=== PATIENT | female | born 1980 | race Caucasian/White ===

== ENCOUNTER 2018-02-13 12:56 | Emergency (ER) | payer SELFPAY ==
--- NOTE | 2018-02-13 13:03 | ED Physician Documentation ---
General Adult - HISTORIAN Historian: patient - HPI Stated Complaint: left sided chest/rib pain x 1 day Chief Complaint: Chest Pain Onset: minutes (6) Timing: still present Severity: mild Further Comments: yes (She reports feeling as though she had a fever this am and she was feeling like she had a collapsed lung as she did before. She states she is sure she feels exactly the same as she did with the collpased lung and she is worried. She denies a cough. Sickness started early this am although she is not sure of exact time. She did not measure her fever) Last known Well Code/Unknown Code: Unknown - ROS CONST: fever CVS/RESP: chest pain (left lower ). denies: shortness of breath, cough GI/: none MS/SKIN/LYMPH: none NEURO/PSYCH: denies: headache, fainting, dizziness - PAST HX Past History: none Other History: none Surgeries/Procedures: none Immunizations: UTD Allergies/Adverse Reactions: Allergies Allergy/AdvReac Type Severity Reaction Status Date / Time No Known Allergies Allergy Unverified 02/13/18 13:09 Home Medications: Ambulatory Orders Medication Instructions Recorded NK [NK] 02/13/18 - SOCIAL HX Smoking History: cigarettes Alcohol Use: none Drug Use: none - FAMILY HX Family History: No - REVIEWED ASSESSMENTS Nursing Assessment Reviewed: Yes Vitals Reviewed: Yes Progress - Progress Progress: 1420: Pt came to the ER desk and asked for results and we did inform her we were awaiting the radiologist read on the xray. She states she needs to go due to her boyfriend needing to return to work. She asked if she could just leave and we would call her in meds or call her if we get results. Again we informed her of the process and she went back into the exam room. She denied increased pain or complaints. DG 1440: Pt and boyfriend left room. when questioned by the nurse she said she was leaving. The nurse asked her to sign an AMA form and she refused leaving ER DG ED Results Lab/Radiology - Radiology Radiology Impressions: PA and lateral chest History: Cough. Dyspnea. History of a collapsed lung. PA and lateral chest dated February 13, 2018 is without prior radiographs for comparison. There is mild blunting of the left costophrenic angle consistent with mild pleural thickening. There is a relatively rounded density at the left lung base , possibly the patient's nipple shadow but a small lung nodule would not be excluded. There is no confluent infiltrate. There is no definite pleural effusion. Heart size is normal. Impression: Mild blunting of the left costophrenic angle likely relating to mild pleural thickening. Small round nodular density at the left lung base, possibly a nipple shadow but a small lung nodule would not be excluded. Either follow-up with nipple markers or a follow-up chest CT would be recommended. Electronically signed on Feb 13, 2018 2:02:23 PM CDT by: Samanta Yost General Adult Physical Exam - PHYSICAL EXAM GENERAL APPEARANCE: mild distress EENT: eye inspection normal, ENT inspection normal, pharynx normal NECK: normal inspection RESPIRATORY: no resp distress, chest non-tender, breath sounds normal CVS: reg rate & rhythm, heart sounds normal, equal pulses, no murmur ABDOMEN: soft, normal bowel sounds, no distension, non-tender SKIN: warm/dry, normal color EXTREMITIES: non-tender, normal range of motion, no evidence of injury, no edema NEURO: oriented X3, CN's nml as tested, motor nml, sensation nml, depressed mood /affect (crying and anxious ) Discharge Clincal Impression: Chest pain Qualifiers: Chest pain type: unspecified Qualified Code(s): R07.9 - Chest pain, unspecified Referrals: Primary Doctor,No [Primary Care Provider] - 2 Days Disposition: AGAINST MEDICAL ADVICE Decision to Admit: NO Date of Decison to Admit: 02/13/18 Decision Time: 14:46
[2018-02-13 13:14] VITALS: BP 142/102
--- NOTE | 2018-02-13 15:46 | Diagnostic Imaging Report ---
TEODORO ONEIL [facility] [id number] [facility] [address] [place], [place]. [address] Report Submission Date: Feb 13, 2018 2:02:23 PM CDT Patient Study Name: ANTOINE DONALDSON Date: Feb 13, 2018 1:38:41 PM CDT Modality Type: DX Gender: F Description: CHEST : 80 Institution: [facility] Physician: TEODORO ONEIL PA and lateral chest History: Cough. Dyspnea. History of a collapsed lung. PA and lateral chest dated February 13, 2018 is without prior radiographs for comparison. There is mild blunting of the left costophrenic angle consistent with mild pleural thickening. There is a relatively rounded density at the left lung base , possibly the patient's nipple shadow but a small lung nodule would not be excluded. There is no confluent infiltrate. There is no definite pleural effusion. Heart size is normal. Impression: Mild blunting of the left costophrenic angle likely relating to mild pleural thickening. Small round nodular density at the left lung base, possibly a nipple shadow but a small lung nodule would not be excluded. Either follow-up with nipple markers or a follow-up chest CT would be recommended. Electronically signed on Feb 13, 2018 2:02:23 PM CDT by: Samanta Yost Addendum: PA and lateral views of the chest were obtained with nipple markers in place. The nipple markers do not correspond with the nodular appearing density at the left lung base. Therefore, consider chest CT for further assessment of this noncalcified nodular appearing density. Addendum electronically signed by Samanta Yost on February 13, 2018 2:50:07 PM CDT [facility]
== END 2018-02-13 14:44 | disposition left against medical advice (07) ==
LOC: ED 12:56
DX: R07.9 Chest pain, unspecified (principal); Z53.9 Procedure and treatment not carried out, unspecified reason
CPT/HCPCS: 71046; 99283

== ENCOUNTER 2018-02-21 09:12 | Outpatient (CLI) | payer SELFPAY ==
--- NOTE | 2018-02-21 12:26 | Diagnostic Imaging Report ---
CHERYL GARLAND [facility] [address] [address] [facility] [address] [place] [address]. [id number] Report Submission Date: Feb 21, 2018 12:12:43 PM CDT Patient Study Name: ANTOINE DONALDSON Date: Feb 21, 2018 9:58:36 AM CDT Modality Type: CT\SR Gender: F Description: CT CHEST W/ CONTRAST : 80 Institution: [facility] Physician: CHERYL GARLAND CT CHEST WITH CONTRAST HISTORY: Left lower lobe nodule found on chest radiograph TECHNIQUE: Helically acquired images were obtained from the thoracic inlet to the adrenal glands following IV contrast. FINDINGS: Mild emphysematous findings of the lungs are present with small bulla at the lung apices. There is additionally pleural parenchymal scarring at the lung apices. The right lung is otherwise clear. No discrete left lung nodule is noted. However, along the level of the hemidiaphragm at the left lung base, there is a band like density which is most consistent with scarring. Additionally, at the left costophrenic angle, there are bandlike pleural parenchymal densities also consistent with areas of scarring. The thoracic aorta is normal in caliber. There is no mediastinal or hilar lymphadenopathy. There is no pericardial or pleural effusion. Visualized structures within the upper abdomen are unremarkable. No osseous abnormalities are noted. Impression: There is a generalized background the of mild emphysema. High at the lung apices, there are bullous changes with streaky pleural parenchymal densities at both lung apices consistent with areas of pleural parenchymal scarring. At the left lung base, there is a linear density along the hemidiaphragm which is most consistent with an area of scarring. Additionally, streaky linear pleural parenchymal densities are present laterally at the level of the costophrenic angle consistent with chronic areas of pleural parenchymal scarring. Electronically signed on Feb 21, 2018 12:12:43 PM CDT by: Samanta ALARCON
== END 2018-02-21 09:13 ==
LOC: RAD 09:12
PROVIDERS: ATTEND Physician Assistant
DX: R91.1 Solitary pulmonary nodule (principal)
CPT/HCPCS: 71260